=== PATIENT | male | born 1990 | race Caucasian/White ===

== ENCOUNTER 2019-01-13 21:08 | Emergency (ER) | payer OTHER ==
[~2019-01-13] VITALS: Ht 182.9 cm; Wt 82.0 kg
[~2019-01-13 21:08] MED LIST: ALPR1TAB7 PO; BACTDS PO; CEPH-443 PO; CEPH500C PO; HYDR-762 PO; IBUP-1542 PO; NEOM28.33 TOP
[2019-01-13 21:15] VITALS: BP 137/89; PULSE 74; RESP 18; Ht 182.9 cm; Wt 82.0 kg
[2019-01-13] MEDS ORDERED: DEXAMETHASONE 10 MG/ML 1 ML INJ PO ONE (22:30)
[2019-01-13] MEDS ORDERED: DIPHENHYDRAMINE 2.5 MG/ML 5ML CUP PO ONE (22:30)
--- NOTE | 2019-01-14 01:16 | ERD ---
ER Documentation Chief Complaint Chief Complaint L sided face & torso redness x 2 days HPI History of Present Illness: 28-year-old male who reports a past medical history of psychiatric including PTSD coming in today with complaint of rash. Patient reports that he has noticed a rash to his left sided face and neck as well as his torso for the past 2 days. Patient is concerned he might be allergic to dog but he has been having out for a long time. Does not know if he is not exposed to any other allergens. At home pharmacological/nonpharmacological treatment for symptoms: Denies Denies social concerns; Denies recent foreign travel ROS All systems reviewed and are negative except as per history of present illness. Medications Home Meds Active Scripts Cephalexin* (Cephalexin*) 500 Mg Capsule, 500 MG PO Q6 for 7 Days, CAP Prov:SHENA LAWSONSIDDHARTH DO 03/15/15 Sulfamethoxazole-Trimethoprim* (Bactrim* DS) 800-160 Mg Tab, 1 TAB PO BID, #14 TAB Prov:SILVIANO LAWSON DO 03/15/15 Neomy Sulf/Bacitrac Zn/Poly* (Neosporin* Topical Oint) 15 Gm Oint..gm., 1 APPLIC TOP BID for 7 Days, TUB Prov:SHENA LAWSONSIDDHARTH DO 03/15/15 Ibuprofen* (Motrin*) 600 Mg Tab, 600 MG PO Q6, #15 TAB Prov:CHAUNCEY GREENBERGA 12/13/14 Sulfamethoxazole-Trimethoprim* (Bactrim* DS) 800-160 Mg Tab, 1 TAB PO BID for 7 Days, TAB Prov:YARIGALILEA 12/13/14 Cephalexin* (Keflex*) 500 Mg Capsule, 500 MG PO QID for 7 Days, CAP Prov:CHO,GALILEA 12/13/14 Reported Medications Alprazolam* (Alprazolam*) 1 Mg Tablet, 1 MG PO Q8H PRN for ANXIETY, TAB 08/01/14 Hydrocodone Bit-Acetaminophen* ([place]*) 10-325 Mg Tablet, 1 TAB PO Q4H PRN for PAIN, TAB 08/01/14 Allergies Allergies: Coded Allergies: No Known Allergy (Unverified , 12/17/14) PMhx/Soc Medical and Surgical Hx: pt denies Surgical Hx History of Surgery: No Anesthesia Reaction: No Hx Neurological Disorder: No Hx Respiratory Disorders: No Hx Cardiac Disorders: No Hx Psychiatric Problems: No Hx Miscellaneous Medical Probl: Yes (CHRONIC BACK PAIN; pancreatits) Hx Alcohol Use: Yes (occassional) Hx Substance Use: Yes (today) Hx Tobacco Use: Yes Smoking Status: Current every day smoker FmHx Family History: No diabetes, No coronary disease Physical Exam Vitals Vital Signs Date Temp Pulse Resp B/P (MAP) Pulse Ox O2 O2 Flow FiO2 Time Delivery Rate 01/13/19 98.0 74 18 137/89 99 21:15 (105) Physical Exam Const: No acute distress, afebrile Head: Atraumatic Eyes: Normal Conjunctiva ENT: Normal External Ears, Nose and Mouth. Neck: Full range of motion. No meningismus. Resp: Clear to auscultation bilaterally Cardio: Regular rate and rhythm, no murmurs Abd: Soft, non tender, non distended. No guarding, no masses, no rigidity Skin: No petechiae; red macular papular rash noted to left neck and extending to chin all as left torso and left arm consistent with allergic reaction Back: No midline or flank tenderness Ext: No cyanosis, or edema Neur: Awake and alert x3, speaking in clear sentences, no focal deficits or facial asymmetry Psych: Normal Mood and Affect Results 24 hrs Current Medications Medications Dose Sig/Vannessa Start Time Status Last (Trade) Ordered Route PRN Stop Time Admin Dose Reason Admin 25 mg ONCE ONCE 01/13/19 DC 01/13/19 Diphenhydrami PO 22:30 22:39 ne HCl 01/13/19 22:31 (Benadryl Liquid Cup) 10 mg ONCE ONCE 01/13/19 DC 01/13/19 Dexamethasone PO 22:30 22:39 (Decadron) 01/13/19 22:31 Procedures/MDM ED COURSE: ED course includes a thorough examination and history. The patient was stable throughout ED course. I kept the patient and/or family informed of laboratory and diagnostic imaging results throughout the ED course. MEDICATIONS GIVEN IN ER: Dexamethasone, diphenhydramine MEDICAL DECISION MAKING: Low suspicion for life-threatening medical emergency. Low suspicion for infectious process. Unable to complete full evaluation due to patient eloping. Went to check response of rash after medication ministration unable to find patient. Nursing staff notified. DISPOSITION: Eloped DISCLAIMER: Inadvertent spelling and grammatical errors are likely due to EHR/dictation software use and do not reflect on the overall quality of patient care. Also, please note that the electronic time recorded on this note does not necessarily reflect the actual time of the patient encounter. Departure Diagnosis: Primary Impression: Rash Condition: STEPHANIE Winter NP Jan 14, 2019 01:16
== END 2019-01-13 23:25 | disposition left against medical advice (07) ==
LOC: FTE 21:08
DX: R21 Rash and other nonspecific skin eruption (principal)
CPT/HCPCS: J1100; Z7502; Z7610; 99283

== ENCOUNTER 2019-01-23 20:01 | Inpatient (IN) | payer OTHER ==
[~2019-01-23] VITALS: Ht 182.9 cm; Wt 81.8 kg
[~2019-01-23 20:01] MED LIST changes: +HYDR-3980 PO
[2019-01-23 23:00] VITALS: BP 108/65; PULSE 101; RESP 18
[2019-01-24] VITALS (7 sets, daily range): BP systolic 91–140; BP diastolic 47–77; PULSE 88–105; RESP 16–17
[2019-01-24] MEDS ORDERED: NACL 0.9% 3 ML SYG IV SCH (05:00)
[2019-01-24] MEDS ORDERED: VANCOMYCIN IV PER PHARMACY XX SCH (05:00)
[2019-01-24] MEDS ORDERED: ONDANSETRON 4 MG INJ IV PRN (05:00)
[2019-01-24] MEDS ORDERED: NITROGLYCERIN (SL) 0.4 MG TAB SL PRN (05:00)
[2019-01-24] MEDS ORDERED: ALBUTEROL/IPRATROPIUM (NEB) 3 ML AMP HHN PRN (05:00)
[2019-01-24] MEDS ORDERED: ACETAMINOPHEN 325 MG TAB PO PRN (05:00)
[2019-01-24] MEDS: SOD CHLORIDE 0.9% 1,000 ML IV SCH ×2 (05:08→14:37)
[2019-01-24] MEDS: PIPER-TAZO 3.375 GM IV (PMX) 100 ML IVPB SCH ×4 (05:15→23:56)
[2019-01-24] MEDS ORDERED: PIPER-TAZO 3.375 GM IV (PMX) 100 ML IVPB SCH (06:00)
[2019-01-24] MEDS ORDERED: VANCOMYCIN 1.5 GM/NS 250 ML 250 ML IVPB SCH (06:30)
--- NOTE | 2019-01-24 08:08 | HP ---
Date/Time of Note Date/Time of Note DATE: 01/24/19 TIME: 08:04 Assessment/Plan VTE Prophylaxis SCD applied (from Nsg): Yes Pharmacological prophylaxis: heparin Assessment/Plan Assessment/Plan 1. Chest pain -Patient with a history of IV drug use and reportedly was febrile at the outside facility. Will rule out ACS and also need evaluation for possible endocarditis -Telemetry monitoring -Serial troponin -We will start with a 2D echo and then consider JUANITO -Empiric IV antibiotic 2. Right upper arm lesion, secondary to IV drug use -Wound care consult -Wound culture -Antibiotic 3. IV drug use: Last use was 2 days ago -Methadone to prevent withdrawal Result Diagram: 01/24/19 0544 01/24/19 0544 Results 24hrs Laboratory Tests Test 01/24/19 05:44 White Blood Count 7.6 # Red Blood Count 4.46 L Hemoglobin 11.7 L Hematocrit 35.6 L Mean Corpuscular Volume 79.8 L Mean Corpuscular Hemoglobin 26.2 L Mean Corpuscular Hemoglobin Concent 32.9 Red Cell Distribution Width 13.2 Platelet Count 112 L Mean Platelet Volume 11.2 #H Immature Granulocytes % 0.500 H Neutrophils % 67.7 Lymphocytes % 11.4 L Monocytes % 19.6 H Eosinophils % 0.3 Basophils % 0.5 Nucleated Red Blood Cells % 0.0 Immature Granulocytes # 0.040 H Neutrophils # 5.1 Lymphocytes # 0.9 Monocytes # 1.5 H Eosinophils # 0.0 Basophils # 0.0 Nucleated Red Blood Cells # 0.0 Sodium Level 141 Potassium Level 3.9 Chloride Level 106 Carbon Dioxide Level 27 Anion Gap 8 Blood Urea Nitrogen 8 Creatinine 0.52 L Est Glomerular Filtrat Rate mL/min > 60 Glucose Level 104 Calcium Level 8.8 Magnesium Level 2.2 Total Bilirubin 0.7 Direct Bilirubin 0.00 Indirect Bilirubin 0.7 Aspartate Amino Transf (AST/SGOT) 31 Alanine Aminotransferase (ALT/SGPT) 19 Alkaline Phosphatase 74 Creatine Kinase 42 Creatine Kinase Index 0.8 Creatinine Kinase MB (Mass) 0.33 Troponin I < 0.012 Total Protein 6.8 Albumin 3.6 Globulin 3.20 Albumin/Globulin Ratio 1.12 Triglycerides Level 98 Cholesterol Level 113 LDL Cholesterol, Calculated 74 HDL Cholesterol 19 L Cholesterol/HDL Ratio 5.9 Thyroid Stimulating Hormone (TSH) 0.451 L HPI/ROS Admit Date/Time Admit Date/Time Jan 23, 2019 at 21:33 Hx of Present Illness Patient is a 28-year-old male with a history of IV drug use, pancreatitis, chronic back pain who initially presented on outside hospital complaining of headache, chest pain, fever, rash and right upper arm lesion. He said he has been injecting into his right upper arm and for the past few days to been progressively more swollen and erythematous. He also reported diffuse headache of 3 days duration and vague chest discomfort. Patient does not have a rash anymore. Patient was found to be septic at the outside facility and transferred to [facility] for further management because of insurance reason. PMH/Family/Social Past Medical History Past Surgical Hx: other (see hpi) Family History Significant Family History: no pertinent family hx Social History Alcohol Use: other Smoking Status: Unknown if ever smoked Drug Use: other Exam Exam Constitutional: no acute distress Head: normocephalic, atraumatic Eyes: EOMI, PERRL Respiratory: clear to auscultation, normal air movement Cardiovascular: no skipped beat Gastrointestinal: soft, non-tender Extremities: palpable pulse Medications Current Medications Sodium Chloride 1,000 ml @ 100 mls/hr Q10H IV Last administered on 01/24/19at 05:08; Admin Dose 100 MLS/HR; Start 01/24/19 at 04:37 IV Flush (NS 3 ml) 3 ml PER PROTOCOL IV ; Start 01/24/19 at 05:00 Ondansetron HCl (Zofran Inj) 4 mg Q6H PRN IV NAUSEA/VOMITING; Start 01/24/19 at 05:00 Nitroglycerin (Nitroglycerin (Sl Tab) 0.4 Mg) 1 tab Q5M PRN SL .CHEST PAIN; Start 01/24/19 at 05:00 Acetaminophen (Tylenol Tab) 650 mg Q6H PRN PO .PAIN 1-3 OR TEMP; Start 01/24/19 at 05:00 Heparin Sodium (Porcine) (Heparin (5000 Units/1ml)) 5,000 unit Q12 SC ; Start 01/24/19 at 09:00 Albuterol/ Ipratropium (Duoneb) 3 ml Q2H RESP THERAPY PRN HHN SHORTNESS OF BREATH; Start 01/24/19 at 05:00 Vancomycin HCl (Vanco Iv Per Pharmacy) VANCOMYCIN PER PHARMACY PER PROTOCOL XX ; Start 01/24/19 at 05:00 Vancomycin/Sodium Chloride 250 ml @ 83.333 mls/ hr Q24H IVPB Last administered on 01/24/19at 06:16; Admin Dose 83.333 MLS/HR; Start 01/24/19 at 06:30; Stop 01/24/19 at 12:00 Piperacillin Sod/ Tazobactam Sod 100 ml @ 200 mls/hr Q6 IVPB Last administered on 01/24/19at 05:15; Admin Dose 200 MLS/HR; Start 01/24/19 at 05:00 Vancomycin HCl 250 ml @ 125 mls/hr Q8H IVPB ; Start 01/24/19 at 14:00 Miscellaneous Information (*Rx Drug Level Order Reminder*) VANCOMYCIN TROUGH AT 0500 0500 ONCE XX ; Start 01/25/19 at 05:00; Stop 01/25/19 at 05:01 Coded Allergies: No Known Allergy (Unverified , 12/17/14) Social History Smoking Status: Current every day smoker Exam/Review of Systems Vital Signs Vitals Vital Signs Date Temp Pulse Resp B/P (MAP) Pulse Ox O2 O2 Flow FiO2 Time Delivery Rate 01/24/19 98.1 97 16 91/47 (62) 100 07:18 01/23/19 Room Air 23:00 NIKI EL MD Jan 24, 2019 08:08
[2019-01-24] MEDS: HEPARIN 5,000 UNIT/1 ML VIAL SC SCH ×2 (08:30→20:59)
[2019-01-24] MEDS ORDERED: METHADONE 10 MG TAB PO SCH (10:00)
[2019-01-24] MEDS: VANCOMYCIN 1 GM 250 ML IVPB SCH ×2 (13:51→20:54)
--- NOTE | 2019-01-24 14:19 | PN ---
Date/Time of Note Date/Time of Note DATE: 01/24/19 TIME: 14:04 Assessment/Plan VTE Prophylaxis Risk score (from Ns)>0 risk: 0 SCD applied (from Ns): Yes Pharmacological prophylaxis: heparin Lines/Catheters IV Catheter Type (from Nrsg): Peripheral IV Assessment/Plan Assessment/Plan 1. Fever and headache for 2 days after IVDA, r/o bacteremia from IVDA, follow up with blood culture, on antibiotics 2. Chest pain, atypical, unlikely cardiac, negative troponin, no further work up needed by now 3. IVDA, advise to quit 4. Right upper arm old lesion, secondary to IV drug use, no sign of infection 5. DVT prophylaxis: heparin Result Diagram: 01/24/19 0544 01/24/19 0544 Results 24hrs Laboratory Tests Test 01/24/19 05:44 01/24/19 10:39 01/24/19 10:40 White Blood Count 7.6 # Red Blood Count 4.46 L Hemoglobin 11.7 L Hematocrit 35.6 L Mean Corpuscular Volume 79.8 L Mean Corpuscular Hemoglobin 26.2 L Mean Corpuscular Hemoglobin Concent 32.9 Red Cell Distribution Width 13.2 Platelet Count 112 L Mean Platelet Volume 11.2 #H Immature Granulocytes % 0.500 H Neutrophils % 67.7 Lymphocytes % 11.4 L Monocytes % 19.6 H Eosinophils % 0.3 Basophils % 0.5 Nucleated Red Blood Cells % 0.0 Immature Granulocytes # 0.040 H Neutrophils # 5.1 Lymphocytes # 0.9 Monocytes # 1.5 H Eosinophils # 0.0 Basophils # 0.0 Nucleated Red Blood Cells # 0.0 Sodium Level 141 Potassium Level 3.9 Chloride Level 106 Carbon Dioxide Level 27 Anion Gap 8 Blood Urea Nitrogen 8 Creatinine 0.52 L Est Glomerular Filtrat Rate mL/min > 60 Glucose Level 104 Hemoglobin A1c 5.3 Calcium Level 8.8 Magnesium Level 2.2 Total Bilirubin 0.7 Direct Bilirubin 0.00 Indirect Bilirubin 0.7 Aspartate Amino Transf (AST/SGOT) 31 Alanine Aminotransferase (ALT/SGPT) 19 Alkaline Phosphatase 74 Creatine Kinase 42 39 Creatine Kinase Index 0.8 1.2 Creatinine Kinase MB (Mass) 0.33 0.46 Troponin I < 0.012 < 0.012 Total Protein 6.8 Albumin 3.6 Globulin 3.20 Albumin/Globulin Ratio 1.12 Triglycerides Level 98 Cholesterol Level 113 LDL Cholesterol, Calculated 74 HDL Cholesterol 19 L Cholesterol/HDL Ratio 5.9 Thyroid Stimulating Hormone (TSH) 0.451 L Urine Color YELLOW Urine Clarity CLEAR Urine pH 8.0 Urine Specific [place] 1.011 Urine Ketones 1+ H Urine Nitrite NEGATIVE Urine Bilirubin NEGATIVE Urine Urobilinogen NEGATIVE Urine Leukocyte Esterase NEGATIVE Urine Microscopic RBC 3 Urine Microscopic WBC 1 Urine Hemoglobin 1+ H Urine Glucose NEGATIVE Urine Total Protein NEGATIVE Subjective 24 Hr Interval Summary Free Text/Dictation no fever or headache today. no chest pain. no shortness of breath Exam/Review of Systems Exam Vitals Vital Signs Date Temp Pulse Resp B/P (MAP) Pulse Ox O2 O2 Flow FiO2 Time Delivery Rate 01/24/19 98.0 105 16 106/67 100 11:17 (80) 01/23/19 Room Air 23:00 Constitutional: alert, oriented, well developed Head: normocephalic, atraumatic Eyes: nl conjunctiva, EOMI, nl lids ENMT: nl external ears & nose, nl lips & teeth, nl nasal mucosa & septum Neck: supple, non-tender Respiratory: clear to auscultation, normal air movement; No congested cough, No crackles/rales, No diminished breath sounds, No intercostal retraction, No labored breathing, No respirations, No tactile fremitus, No wheezing, No other Cardiovascular: regular rate and rhythm, nl pulses; No bruits, No diastolic murmur, No edema, No gallop, No irregular rhythm, No jugular venous distention (JVD), No murmurs/extra sounds, No rub, No systolic murmur, No S3, No S4, No other Gastrointestinal: soft, nl liver, spleen, non-tender; No ascites, No bowel sounds, No distended, No firm, No hepatomegaly, No mass, No rebound or guarding, No splenomegaly, No surgical scars, No tender, No other Musculoskeletal: nl extremities to inspection Neurological: OXYHYDROGEN WELDER II-XII intact, nl mental status, nl speech, nl strength Results Results 24hrs Laboratory Tests Test 01/24/19 05:44 01/24/19 10:39 01/24/19 10:40 White Blood Count 7.6 # Red Blood Count 4.46 L Hemoglobin 11.7 L Hematocrit 35.6 L Mean Corpuscular Volume 79.8 L Mean Corpuscular Hemoglobin 26.2 L Mean Corpuscular Hemoglobin Concent 32.9 Red Cell Distribution Width 13.2 Platelet Count 112 L Mean Platelet Volume 11.2 #H Immature Granulocytes % 0.500 H Neutrophils % 67.7 Lymphocytes % 11.4 L Monocytes % 19.6 H Eosinophils % 0.3 Basophils % 0.5 Nucleated Red Blood Cells % 0.0 Immature Granulocytes # 0.040 H Neutrophils # 5.1 Lymphocytes # 0.9 Monocytes # 1.5 H Eosinophils # 0.0 Basophils # 0.0 Nucleated Red Blood Cells # 0.0 Sodium Level 141 Potassium Level 3.9 Chloride Level 106 Carbon Dioxide Level 27 Anion Gap 8 Blood Urea Nitrogen 8 Creatinine 0.52 L Est Glomerular Filtrat Rate mL/min > 60 Glucose Level 104 Hemoglobin A1c 5.3 Calcium Level 8.8 Magnesium Level 2.2 Total Bilirubin 0.7 Direct Bilirubin 0.00 Indirect Bilirubin 0.7 Aspartate Amino Transf (AST/SGOT) 31 Alanine Aminotransferase (ALT/SGPT) 19 Alkaline Phosphatase 74 Creatine Kinase 42 39 Creatine Kinase Index 0.8 1.2 Creatinine Kinase MB (Mass) 0.33 0.46 Troponin I < 0.012 < 0.012 Total Protein 6.8 Albumin 3.6 Globulin 3.20 Albumin/Globulin Ratio 1.12 Triglycerides Level 98 Cholesterol Level 113 LDL Cholesterol, Calculated 74 HDL Cholesterol 19 L Cholesterol/HDL Ratio 5.9 Thyroid Stimulating Hormone (TSH) 0.451 L Urine Color YELLOW Urine Clarity CLEAR Urine pH 8.0 Urine Specific [place] 1.011 Urine Ketones 1+ H Urine Nitrite NEGATIVE Urine Bilirubin NEGATIVE Urine Urobilinogen NEGATIVE Urine Leukocyte Esterase NEGATIVE Urine Microscopic RBC 3 Urine Microscopic WBC 1 Urine Hemoglobin 1+ H Urine Glucose NEGATIVE Urine Total Protein NEGATIVE Medications Medication Current Medications Sodium Chloride 1,000 ml @ 100 mls/hr Q10H IV Last administered on 01/24/19at 05:08; Admin Dose 100 MLS/HR; Start 01/24/19 at 04:37 IV Flush (NS 3 ml) 3 ml PER PROTOCOL IV ; Start 01/24/19 at 05:00 Ondansetron HCl (Zofran Inj) 4 mg Q6H PRN IV NAUSEA/VOMITING; Start 01/24/19 at 05:00 Nitroglycerin (Nitroglycerin (Sl Tab) 0.4 Mg) 1 tab Q5M PRN SL .CHEST PAIN; Start 01/24/19 at 05:00 Acetaminophen (Tylenol Tab) 650 mg Q6H PRN PO .PAIN 1-3 OR TEMP; Start 01/24/19 at 05:00 Heparin Sodium (Porcine) (Heparin (5000 Units/1ml)) 5,000 unit Q12 SC Last administered on 01/24/19at 08:30; Admin Dose 5,000 UNIT; Start 01/24/19 at 09:00 Albuterol/ Ipratropium (Duoneb) 3 ml Q2H RESP THERAPY PRN HHN SHORTNESS OF BREATH; Start 01/24/19 at 05:00 Vancomycin HCl (Vanco Iv Per Pharmacy) VANCOMYCIN PER PHARMACY PER PROTOCOL XX ; Start 01/24/19 at 05:00 Piperacillin Sod/ Tazobactam Sod 100 ml @ 200 mls/hr Q6 IVPB Last administered on 01/24/19at 12:30; Admin Dose 200 MLS/HR; Start 01/24/19 at 05:00 Vancomycin HCl 250 ml @ 125 mls/hr Q8H IVPB Last administered on 01/24/19at 13:51; Admin Dose 125 MLS/HR; Start 01/24/19 at 14:00 Miscellaneous Information (*Rx Drug Level Order Reminder*) VANCOMYCIN TROUGH AT 0500 0500 ONCE XX ; Start 01/25/19 at 05:00; Stop 01/25/19 at 05:01 Methadone HCl (Methadone) 40 mg DAILY PO ; Start 01/24/19 at 10:00; Status TAMIKO CAMERON MD Jan 24, 2019 14:14
[2019-01-24] MEDS ORDERED: BISACODYL (EC) 5 MG TAB PO ONE (15:00)
[2019-01-24] MEDS: HYDROCODONE/APAP (5/325) TAB PO PRN ×2 (15:48→22:22)
[2019-01-24] MEDS ORDERED: ALPRAZOLAM 1 MG TAB PO PRN (21:00)
[2019-01-25] MEDS: SOD CHLORIDE 0.9% 1,000 ML IV SCH ×3 (00:37→20:52)
[2019-01-25 03:37] VITALS: BP 113/66; PULSE 92; RESP 17
[2019-01-25] MEDS: PIPER-TAZO 3.375 GM IV (PMX) 100 ML IVPB SCH ×3 (04:59→17:10)
--- NOTE | 2019-01-25 05:54 | CONS ---
Assessment/Plan Assessment/Plan Assessment/Plan (Daily) KELECHI moderate eschar H/O IVDA H/O Hep C Smoker agree with current dose of methadone , with hold benzo's refer to treatment when discharged w/u for chest pain per internal medicine. Consultation Date/Type/Reason Admit Date/Time Jan 23, 2019 at 21:33 Date/Time of Note DATE: 01/25/19 TIME: 05:44 Hx of Present Illness 28 year old male with a recent H/O swelling of the left upper arm. 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 Last time ud=sed was two days ago. Was on treatment program in the past 10 years ago. Pt developed chest pains currently being worked up. Denies a prior h/o cardiac disease , denies severe SOB, hemoptysis or prior h/o cardiac disease. mPt vapes, no alcohol, mixes his drugs and when using. Prior h/o Hep C. treated, negative HIV. Last treatment program was 10 years ago.. Constitutional: no complaints, improved Eyes: no complaints ENT: no complaints Respiratory: no complaints Cardiovascular: no complaints Gastrointestinal: no complaints Genitourinary: no complaints Musculoskeletal: no complaints Skin: no complaints Neurologic: no complaints Endocrine: no complaints Lymphatic: no complaints Psychological: no complaints, nl mood/affect Immunologic: no complaints Past Medical History Medical History: other (none) Home Meds Active Scripts Cephalexin* (Cephalexin*) 500 Mg Capsule, 500 MG PO Q6 for 7 Days, CAP Prov:LULUSHENASIDDHARTH DO 03/15/15 Sulfamethoxazole-Trimethoprim* (Bactrim* DS) 800-160 Mg Tab, 1 TAB PO BID, #14 TAB Prov:SILVIANO LAWSON 03/15/15 Neomy Sulf/Bacitrac Zn/Poly* (Neosporin* Topical Oint) 15 Gm Oint..gm., 1 APPLIC TOP BID for 7 Days, TUB Prov:SILVIANO LAWSON 03/15/15 Ibuprofen* (Motrin*) 600 Mg Tab, 600 MG PO Q6, #15 TAB Prov:CHO,GALILEA 12/13/14 Sulfamethoxazole-Trimethoprim* (Bactrim* DS) 800-160 Mg Tab, 1 TAB PO BID for 7 Days, TAB Prov:CHO,GALILEA 6/18/15 Cephalexin* (Keflex*) 500 Mg Capsule, 500 MG PO QID for 7 Days, CAP Prov:CHO,GALILEA 12/13/14 Reported Medications Alprazolam* (Alprazolam*) 1 Mg Tablet, 1 MG PO Q8H PRN for ANXIETY, TAB 08/01/14 Hydrocodone Bit-Acetaminophen* ([place]*) 10-325 Mg Tablet, 1 TAB PO Q4H PRN for PAIN, TAB 08/01/14 Medications Current Medications Sodium Chloride 1,000 ml @ 100 mls/hr Q10H IV Last administered on 01/25/19at 02:02; Admin Dose 100 MLS/HR; Start 01/24/19 at 04:37 IV Flush (NS 3 ml) 3 ml PER PROTOCOL IV ; Start 01/24/19 at 05:00 Ondansetron HCl (Zofran Inj) 4 mg Q6H PRN IV NAUSEA/VOMITING; Start 01/24/19 at 05:00 Nitroglycerin (Nitroglycerin (Sl Tab) 0.4 Mg) 1 tab Q5M PRN SL .CHEST PAIN; Start 01/24/19 at 05:00 Acetaminophen (Tylenol Tab) 650 mg Q6H PRN PO .PAIN 1-3 OR TEMP; Start 01/24/19 at 05:00 Heparin Sodium (Porcine) (Heparin (5000 Units/1ml)) 5,000 unit Q12 SC Last administered on 01/24/19at 20:59; Admin Dose 5,000 UNIT; Start 01/24/19 at 09:00 Albuterol/ Ipratropium (Duoneb) 3 ml Q2H RESP THERAPY PRN HHN SHORTNESS OF BREATH; Start 01/24/19 at 05:00 Vancomycin HCl (Vanco Iv Per Pharmacy) VANCOMYCIN PER PHARMACY PER PROTOCOL XX ; Start 01/24/19 at 05:00 Piperacillin Sod/ Tazobactam Sod 100 ml @ 200 mls/hr Q6 IVPB Last administered on 01/25/19at 04:59; Admin Dose 200 MLS/HR; Start 01/24/19 at 05:00 Vancomycin HCl 250 ml @ 125 mls/hr Q8H IVPB Last administered on 01/24/19at 20:54; Admin Dose 125 MLS/HR; Start 01/24/19 at 14:00 Acetaminophen/ Hydrocodone Bitart ([place] (5/325)) 1 tab Q4H PRN PO MODERATE PAIN LEVEL 4-6 Last administered on 01/24/19at 22:22; Admin Dose 1 TAB; Start 01/24/19 at 14:30 Alprazolam (Xanax) 1 mg Q8 PRN PO anxiety Last administered on 01/24/19at 21:01; Admin Dose 1 MG; Start 01/24/19 at 21:00 Allergies: Coded Allergies: No Known Allergy (Unverified , 12/17/14) Past Surgical History Past Surgical Hx: other (none) Social History Alcohol Use: none Smoking Status: Current every day smoker Exam/Review of Systems Exam Vitals Vital Signs Date Temp Pulse Resp B/P (MAP) Pulse Ox O2 O2 Flow FiO2 Time Delivery Rate 01/25/19 97.8 92 17 113/66 99 03:37 (82) 01/23/19 Room Air 23:00 Intake and Output 01/24/19 01/24/19 01/25/19 1515:00 23:00 07:00 IntakeIntake Total 650 ml 1870 ml 1240 ml OutputOutput Total 300 ml 500 ml BalanceBalance 350 ml 1870 ml 740 ml Constitutional: alert, oriented, well developed Psych: anxiety Head: normocephalic, atraumatic Eyes: nl conjunctiva, EOMI, nl lids, nl sclera, PERRL ENMT: nl external ears & nose, nl lips & teeth, nl nasal mucosa & septum; No mucosa pink and moist, No intubated, No tympanic membranes, No other Neck: supple, non-tender; No jvd, No bruits, No masses, No thyromegaly, No nuchal rigidity, No other Respiratory: clear to auscultation, normal air movement; No congested cough, No crackles/rales, No diminished breath sounds, No intercostal retraction, No labored breathing, No respirations, No tactile fremitus, No wheezing, No other Cardiovascular: regular rate and rhythm, nl pulses Gastrointestinal: soft, nl liver, spleen, non-tender Skin: other (RUE anterior antebrachial linear brawny scar , no flocculence or dischargr) Results Result Diagram: 01/25/19 0432 01/25/19 0432 Results 24hrs Laboratory Tests Test 01/24/19 10:39 01/24/19 10:40 01/25/19 04:32 Urine Color YELLOW Urine Clarity CLEAR Urine pH 8.0 Urine Specific [place] 1.011 Urine Ketones 1+ H Urine Nitrite NEGATIVE Urine Bilirubin NEGATIVE Urine Urobilinogen NEGATIVE Urine Leukocyte Esterase NEGATIVE Urine Microscopic RBC 3 Urine Microscopic WBC 1 Urine Hemoglobin 1+ H Urine Glucose NEGATIVE Urine Total Protein NEGATIVE Creatine Kinase 39 Creatine Kinase Index 1.2 Creatinine Kinase MB (Mass) 0.46 Troponin I < 0.012 White Blood Count 6.8 Red Blood Count 4.65 L Hemoglobin 12.1 L Hematocrit 36.9 L Mean Corpuscular Volume 79.4 L Mean Corpuscular Hemoglobin 26.0 L Mean Corpuscular Hemoglobin Concent 32.8 Red Cell Distribution Width 13.3 Platelet Count 184 # Mean Platelet Volume 10.5 H Immature Granulocytes % 0.700 H Neutrophils % 73.6 Lymphocytes % 15.5 Monocytes % 9.8 Eosinophils % 0.1 Basophils % 0.3 Nucleated Red Blood Cells % 0.0 Immature Granulocytes # 0.050 H Neutrophils # 5.0 Lymphocytes # 1.1 Monocytes # 0.7 Eosinophils # 0.0 Basophils # 0.0 Nucleated Red Blood Cells # 0.0 Sodium Level 143 Potassium Level 3.6 Chloride Level 109 Carbon Dioxide Level 24 Anion Gap 10 Blood Urea Nitrogen 10 Creatinine 0.59 L Est Glomerular Filtrat Rate mL/min > 60 Glucose Level 106 Calcium Level 8.8 Phosphorus Level 3.1 Magnesium Level 2.2 Medications Medication Current Medications Sodium Chloride 1,000 ml @ 100 mls/hr Q10H IV Last administered on 01/25/19at 02:02; Admin Dose 100 MLS/HR; Start 01/24/19 at 04:37 IV Flush (NS 3 ml) 3 ml PER PROTOCOL IV ; Start 01/24/19 at 05:00 Ondansetron HCl (Zofran Inj) 4 mg Q6H PRN IV NAUSEA/VOMITING; Start 01/24/19 at 05:00 Nitroglycerin (Nitroglycerin (Sl Tab) 0.4 Mg) 1 tab Q5M PRN SL .CHEST PAIN; Start 01/24/19 at 05:00 Acetaminophen (Tylenol Tab) 650 mg Q6H PRN PO .PAIN 1-3 OR TEMP; Start 01/24/19 at 05:00 Heparin Sodium (Porcine) (Heparin (5000 Units/1ml)) 5,000 unit Q12 SC Last administered on 01/24/19 20:59; Admin Dose 5,000 UNIT; Start 01/24/19 at 09:00 Albuterol/ Ipratropium (Duoneb) 3 ml Q2H RESP THERAPY PRN HHN SHORTNESS OF BREATH; Start 01/24/19 at 05:00 Vancomycin HCl (Vanco Iv Per Pharmacy) VANCOMYCIN PER PHARMACY PER PROTOCOL XX ; Start 01/24/19 at 05:00 Piperacillin Sod/ Tazobactam Sod 100 ml @ 200 mls/hr Q6 IVPB Last administered on 01/25/19 04:59; Admin Dose 200 MLS/HR; Start 01/24/19 at 05:00 Vancomycin HCl 250 ml @ 125 mls/hr Q8H IVPB Last administered on 01/24/19at 20:54; Admin Dose 125 MLS/HR; Start 01/24/19 at 14:00 Acetaminophen/ Hydrocodone Bitart ([place] (5/325)) 1 tab Q4H PRN PO MODERATE PAIN LEVEL 4-6 Last administered on 01/24/19at 22:22; Admin Dose 1 TAB; Start 01/24/19 at 14:30 Alprazolam (Xanax) 1 mg Q8 PRN PO anxiety Last administered on 01/24/19 21:01; Admin Dose 1 MG; Start 01/24/19 at 21:00 JESICA AGUILAR Jan 25, 2019 05:54
[2019-01-25] MEDS: VANCOMYCIN 1 GM 250 ML IVPB SCH (06:02)
[2019-01-25 07:34] VITALS: BP 116/63; PULSE 92; RESP 19
[2019-01-25] MEDS: HYDROCODONE/APAP (5/325) TAB PO PRN (08:24)
[2019-01-25] MEDS: HEPARIN 5,000 UNIT/1 ML VIAL SC SCH ×2 (08:35→20:54)
[2019-01-25 11:30] VITALS: BP 117/61; PULSE 17; PULSE 77; RESP 18
[2019-01-25] MEDS: VANCOMYCIN 1.5 GM/NS 250 ML 250 ML IVPB SCH ×2 (13:49→22:02)
--- NOTE | 2019-01-25 14:00 | PN ---
Date/Time of Note Date/Time of Note DATE: 01/25/19 TIME: 13:51 Assessment/Plan VTE Prophylaxis Risk score (from Ns)>0 risk: 0 SCD applied (from [facility]): Yes Pharmacological prophylaxis: other Pharm contraindication: other Lines/Catheters IV C[facility]ter Type (from [facility]): Peripheral IV Assessment/Plan Assessment/Plan 1. Fever and headache for 2 days after IVDA, r/o bacteremia from IVDA, follow up with blood culture an echo 2. Chest pain, atypical, unlikely cardiac, negative troponin, no further work up needed by now 3. IVDA, advise to quit 4. Right upper arm old lesion, secondary to IV drug use, no sign of infection 5. DVT prophylaxis: heparin Result Diagram: 01/25/1943101/25/19431 Results 24hrs Laboratory Tests Test 01/25/19 04:32 White Blood Count 6.8 Red Blood Count 4.65 L Hemoglobin 12.1 L Hematocrit 36.9 L Mean Corpuscular Volume 79.4 L Mean Corpuscular Hemoglobin 26.0 L Mean Corpuscular Hemoglobin Concent 32.8 Red Cell Distribution Width 13.3 Platelet Count 184 # Mean Platelet Volume 10.5 H Immature Granulocytes % 0.700 H Neutrophils % 73.6 Lymphocytes % 15.5 Monocytes % 9.8 Eosinophils % 0.1 Basophils % 0.3 Nucleated Red Blood Cells % 0.0 Immature Granulocytes # 0.050 H Neutrophils # 5.0 Lymphocytes # 1.1 Monocytes # 0.7 Eosinophils # 0.0 Basophils # 0.0 Nucleated Red Blood Cells # 0.0 Sodium Level 143 Potassium Level 3.6 Chloride Level 109 Carbon Dioxide Level 24 Anion Gap 10 Blood Urea Nitrogen 10 Creatinine 0.59 L Est Glomerular Filtrat Rate mL/min > 60 Glucose Level 106 Calcium Level 8.8 Phosphorus Level 3.1 Magnesium Level 2.2 Vancomycin Level Trough 8.4 L Exam/Review of Systems Exam Vitals Vital Signs Date Temp Pulse Resp B/P (MAP) Pulse Ox O2 O2 Flow FiO2 Time Delivery Rate 01/25/19 97.5 77 18 117/61 95 11:30 (79) 01/23/19 Room Air 23:00 Intake and Output 01/24/19 01/24/19 01/25/19 1515:00 23:00 07:00 IntakeIntake Total 650 ml 1870 ml 1340 ml OutputOutput Total 300 ml 500 ml BalanceBalance 350 ml 1870 ml 840 ml Results Results 24hrs Laboratory Tests Test 01/25/19 04:32 White Blood Count 6.8 Red Blood Count 4.65 L Hemoglobin 12.1 L Hematocrit 36.9 L Mean Corpuscular Volume 79.4 L Mean Corpuscular Hemoglobin 26.0 L Mean Corpuscular Hemoglobin Concent 32.8 Red Cell Distribution Width 13.3 Platelet Count 184 # Mean Platelet Volume 10.5 H Immature Granulocytes % 0.700 H Neutrophils % 73.6 Lymphocytes % 15.5 Monocytes % 9.8 Eosinophils % 0.1 Basophils % 0.3 Nucleated Red Blood Cells % 0.0 Immature Granulocytes # 0.050 H Neutrophils # 5.0 Lymphocytes # 1.1 Monocytes # 0.7 Eosinophils # 0.0 Basophils # 0.0 Nucleated Red Blood Cells # 0.0 Sodium Level 143 Potassium Level 3.6 Chloride Level 109 Carbon Dioxide Level 24 Anion Gap 10 Blood Urea Nitrogen 10 Creatinine 0.59 L Est Glomerular Filtrat Rate mL/min > 60 Glucose Level 106 Calcium Level 8.8 Phosphorus Level 3.1 Magnesium Level 2.2 Vancomycin Level Trough 8.4 L Medications Medication Current Medications Sodium Chloride 1,000 ml @ 100 mls/hr Q10H IV Last administered on 01/25/19at 02:02; Admin Dose 100 MLS/HR; Start 01/24/19 at 04:37 IV Flush (NS 3 ml) 3 ml PER PROTOCOL IV ; Start 01/24/19 at 05:00 Ondansetron HCl (Zofran Inj) 4 mg Q6H PRN IV NAUSEA/VOMITING; Start 01/24/19 at 05:00 Nitroglycerin (Nitroglycerin (Sl Tab) 0.4 Mg) 1 tab Q5M PRN SL .CHEST PAIN; Start 01/24/19 at 05:00 Acetaminophen (Tylenol Tab) 650 mg Q6H PRN PO .PAIN 1-3 OR TEMP; Start 01/24/19 at 05:00 Heparin Sodium (Porcine) (Heparin (5000 Units/1ml)) 5,000 unit Q12 SC Last administered on 01/25/19at 08:35; Admin Dose 5,000 UNIT; Start 01/24/19 at 09:00 Albuterol/ Ipratropium (Duoneb) 3 ml Q2H RESP THERAPY PRN HHN SHORTNESS OF BREATH; Start 01/24/19 at 05:00 Vancomycin HCl (Vanco Iv Per Pharmacy) VANCOMYCIN PER PHARMACY PER PROTOCOL XX ; Start 01/24/19 at 05:00 Piperacillin Sod/ Tazobactam Sod 100 ml @ 200 mls/hr Q6 IVPB Last administered on 01/25/19at 12:04; Admin Dose 200 MLS/HR; Start 01/24/19 at 05:00 Acetaminophen/ Hydrocodone Bitart ([place] (5/325)) 1 tab Q4H PRN PO MODERATE PAIN LEVEL 4-6 Last administered on 01/25/19at 08:24; Admin Dose 1 TAB; Start 01/24/19 at 14:30 Alprazolam (Xanax) 1 mg Q8 PRN PO anxiety Last administered on 01/24/19at 21:01; Admin Dose 1 MG; Start 01/24/19 at 21:00 Vancomycin/Sodium Chloride 250 ml @ 83.333 mls/ hr Q8H IVPB ; Start 01/25/19 at 14:00 Miscellaneous Information (*Rx Drug Level Order Reminder*) VANCO TR 01/26 AT 1300 1300 ONCE XX ; Start 01/26/19 at 13:00; Stop 01/26/19 at 13:01 TAMIKO WONG MD Jan 25, 2019 14:00
[2019-01-25 15:06] VITALS: BP 120/70; PULSE 84; RESP 19
--- NOTE | 2019-01-25 16:46 | RADRPT ---
Echocardiogram Report Patient Name: SERAFIN ZIEGLERPatient ID: [id number] : 1990 (28y 2m)Study Date: 01/24/2019 10:00:58 AM Gender: MAccession #: [id number] Tech: Shadi Dobson [facility] Location: [facility]- Ref.Physician: NIKI EL Height(Cm): BSA: Weight(Kg): Quality: AdequateAccount #: Procedures: Echocardiographic Report: Transthoracic echocardiogram with complete 2D, M-Mode, and doppler examination. Indications: Chest Pain. Measurements: 2D/M Mode Doppler Measurement Value Normal Range Measurement Value Normal Range LVIDd 2D 5.1 [ 4.2 - 5.8 ] cm AV Peak Carl 1.2 [ 100.0 - 170.0 ] cm/sec LVIDs 2D 3.6 [ 2.5 - 4.0 ] cm AV Peak PG 6.0 [ 2.0 - 9.0 ] mmHg LVPWd 2D 0.8 [ 0.6 - 1.0 ] cm LVOT Peak Carl 0.9 [ 70.0 - 110.0 ] cm/sec IVSd 2D 0.8 [ 0.6 - 1.0 ] cm LVOT Peak PG 3.0 [ 2.0 - 6.0 ] mmHg AoR Diam 2D 2.8 [ 2.6 - 3.4 ] cm MV E Peak Carl 0.8 [ 60.0 - 130.0 ] cm/sec EDV 2D 121.0 [ 62.0 - 150.0 ] ml MV A Peak Carl 0.6 [ 100.0 - 120.0 ] cm/sec ESV 2D 53.7 [ 21.0 - 61.0 ] ml MV E/A 1.2 [ 0.8 - 1.5 ] ratio EF 2D 55.6 [ 52.0 - 72.0 ] percent MV Decel Time 187 [ 104 - 258 ] msec LA Dimen 2D 2.8 [ 3.0 - 4.0 ] cm Lat E` Carl 0.2 [ 10.0 - 15.0 ] cm/sec Lateral E/E` 4.3 [ 1.0 - 2.0 ] ratio Med E` Carl 0.1 cm/sec MV E/A 1.2 [ 0.8 - 1.5 ] ratio TR Peak Carl 2.1 [ 100.0 - 280.0 ] cm/sec TR Peak PG 17.0 mmHg RVSP 20.0 [ 10.0 - 36.0 ] mmHg Findings: Left Ventricle: Normal left ventricular systolic function. Normal left ventricular cavity size. Normal left ventricular wall thickness. Ejection fraction is visually estimated at 55 %. Tissue Doppler/Mitral Doppler indices are within normal limits. Right Ventricle: Normal right ventricular size. Normal right ventricular systolic function. Left Atrium: The left atrium is normal in size. Right Atrium: The right atrium is normal in size. Mitral Valve: Normal appearance of the mitral valve. No mitral valve regurgitation is seen. Aortic Valve: Normal appearance of the aortic valve. No significant aortic stenosis or insufficiency. Tricuspid Valve: The estimated Peak RVSP is 20 mmHg. There is trace tricuspid regurgitation. Pericardium: Normal pericardium with no significant pericardial effusion. Aorta: Normal aortic root. IVC: Normal size and normal respiratory collapse consistent with normal right atrial pressure. Conclusions: Normal echocardiogram. Electronically Signed By: Xochilt Marin 2019-01-25 16:46:13 PDT
[2019-01-25 20:29] VITALS: BP 130/78; PULSE 72; RESP 18
[2019-01-26 00:33] VITALS: BP 115/71; PULSE 78; RESP 18
[2019-01-26] MEDS: PIPER-TAZO 3.375 GM IV (PMX) 100 ML IVPB SCH ×3 (00:44→12:18)
[2019-01-26] MEDS: HYDROCODONE/APAP (5/325) TAB PO PRN (00:55)
[2019-01-26 04:40] VITALS: BP 125/86; PULSE 111; RESP 18
[2019-01-26] MEDS: VANCOMYCIN 1.5 GM/NS 250 ML 250 ML IVPB SCH (06:35)
[2019-01-26] MEDS: SOD CHLORIDE 0.9% 1,000 ML IV SCH (06:41)
[2019-01-26 07:43] VITALS: BP 102/66; PULSE 81; RESP 20
[2019-01-26] MEDS: HEPARIN 5,000 UNIT/1 ML VIAL SC SCH (08:20)
[2019-01-26 11:57] VITALS: BP 130/75; PULSE 81; RESP 20
[2019-01-26 15:21] VITALS: BP 117/66; PULSE 103; RESP 20
--- NOTE | 2019-01-26 17:22 | DS ---
Date/Time of Note Date/Time of Note DATE: 01/26/19 TIME: 16:38 Discharge Summary Admission/Discharge Info Admit Date/Time Jan 23, 2019 at 21:33 Discharge Date/Time Discharge Diagnosis 1. Fever and headache for 2 days after IVDA, blood cuture negative, echo unrem arkable, no antibiotics needed 2. Chest pain, atypical, unlikely cardiac, negative troponin, no further work up needed by now 3. IVDA, advise to quit 4. Right upper arm old lesion, secondary to IV drug use, no sign of infection Patient Condition: Stable Hospital Course 28 years old male developed low grade fever and headache after IVDA for two days. With concern of possible bacteremia from IVDA, patient is on antibiotics after admission. Patient has no fever or chills, no leukocytosis after admission. Blood culture is negative, echocardiography is unremarkable. Case is discussed with ID Dr. Shah, no antibiotics ifs neede at this point. Patient is instructed to return back to hospital if fever recurs. Home Meds Active Scripts Ibuprofen* (Motrin*) 600 Mg Tab, 600 MG PO Q6, #15 TAB Prov:CHAUNCEY GREENBERGA 12/13/14 Reported Medications Alprazolam* (Alprazolam*) 1 Mg Tablet, 1 MG PO Q8H PRN for ANXIETY, TAB 08/01/14 Discontinued Reported Medications Hydrocodone Bit-Acetaminophen* ([place]*) 10-325 Mg Tablet, 1 TAB PO Q4H PRN for PAIN, TAB 08/01/14 Discontinued Scripts Cephalexin* (Cephalexin*) 500 Mg Capsule, 500 MG PO Q6 for 7 Days, CAP Prov:SILVIANO LAWSON DO 03/15/15 Sulfamethoxazole-Trimethoprim* (Bactrim* DS) 800-160 Mg Tab, 1 TAB PO BID, #14 TAB Prov:SILVIANO LAWSON DO 03/15/15 Neomy Sulf/Bacitrac Zn/Poly* (Neosporin* Topical Oint) 15 Gm Oint..gm., 1 APPLIC TOP BID for 7 Days, TUB Prov:SILVIANO LAWSON 03/15/15 Sulfamethoxazole-Trimethoprim* (Bactrim* DS) 800-160 Mg Tab, 1 TAB PO BID for 7 Days, TAB Prov:CHAUNCEY GREENBERGA 12/13/14 Cephalexin* (Keflex*) 500 Mg Capsule, 500 MG PO QID for 7 Days, CAP Prov:GALILEA GREENBERG 12/13/14 Follow-up Plan PCP in one week Primary Care Provider Not On Staff Doctor Pending Labs Laboratory Tests Test 01/26/19 14:50 Vancomycin Level Trough 10.7 ug/ml (10.0-20.0) TAMIKO WONG MD Jan 26, 2019 17:22
== END 2019-01-26 17:35 | disposition home or self-care (01) | DRG 864 ==
LOC: TEL 21:33
PROVIDERS: ADMIT Internal Medicine; ATTEND Internal Medicine
DX: R50.9 Fever, unspecified (principal); B18.2 Chronic viral hepatitis C; R07.89 Other chest pain; L98.9 Disorder of the skin and subcutaneous tissue, unspecified; R51 Headache; F17.200 Nicotine dependence, unspecified, uncomplicated
CPT/HCPCS: 80048; 80053; 80061; 80202; 81001; 82550; 82553; 83036; 83735; 84100; 84443; 84484; 85025; 87081; 93306; J1644; J2543; J3370; J7030